=== PATIENT | male | born 2000 | race Caucasian/White ===

== ENCOUNTER 2024-09-25 18:29 | Emergency (ER) | payer SELFPAY ==
[~2024-09-25] VITALS: Ht 170.2 cm; Wt 61.8 kg
[2024-09-25 19:20] VITALS: BP 120/82; PULSE 102; RESP 16; TEMP 98.3; O2SAT 98
--- NOTE | 2024-09-25 20:10 | Physician Documentation ---
History of Present Illness ~ Chief Complaint: Arm Pain Stated Complaint: R ARM PAIN Time Seen by MD: 19:39 HPI 24-year-old male patient presents to the ED with a complaint of right arm pain. He states that he injured himself at his job in [place] a proximally month ago. He has electric heat and then fell off a stand injuring himself.. He has his arm is currently in his sling and he says he that he has a broken arm and wants to know if it needs to be in a splint. Patient is not very forthcoming about his incident or why he was not seen for it in [place] Day of Onset: Sep 25, 2024 Medication Reconciliation Allergies: Coded Allergies: No Known Allergies (Unverified , 09/25/24) Past Medical History Past Medical History: No Pertinent History Past Surgical History: noncontributory Alcohol Use: Occasionally Drug Use: none Review of Systems All Other Systems at this time: Reviewed and Negative ROS As stated above in the HPI, otherwise all systems are reviewed and negative. Physical Exam Vital Signs: Temperature: 98.3, Source: Temporal, Heart Rate: 102, Respiratory Rate: 16, BP: 120/82, Pulse Oximetry: 98, Weight: 61.800 Oxygen Flow Rate: 0 Progress Results/Orders Results/Orders Orders - YONIS MAX [employer] Humerus (2vws) (09/25/24 20:05) Elbow, Complete (3vw Min) (09/25/24 20:05) Shoulder, Complete (Min 2 Vws) (09/25/24 20:05) Completed Orders - YONIS [employer] Humerus (2vws) (09/25/24 20:05) Elbow, Complete (3vw Min) (09/25/24 20:05) Shoulder, Complete (Min 2 Vws) (09/25/24 20:05) Vital Signs 09/25/24 19:20 Temp 98.3 Pulse 102 Resp 16 B/P (MAP) 120/82 Pulse Ox 98 O2 Flow Rate 0 Medical Decision Making Findings I did not appreciate any acute fractures in patient's x-rays that would require splinting. Departure Disposition: HOME / SELF CARE / HOMELESS Impression: Primary Impression: Superficial bruising Condition: Stable Referrals: NO PRIMARY CARE PROVIDER (PCP) Signature Scribe Signature: h Attestation: Scribed for Yonis Max Np by Yonis Evangelista NP . 09/25/24 20:10 YONIS MAX NP Sep 25, 2024 20:10
--- NOTE | 2024-09-25 20:34 | RADIOLOGY REPORT ---
EXAMINATIONS: 3 views of the right shoulder 2 views of the right humerus 4 views of the right elbow CLINICAL HISTORY: fall non acute RIGHT COMPARISON: None Findings and impression: No grossly displaced fractures or dislocations of the right shoulder, humerus or elbow are evident on the provided views. Glenohumeral articulation appears intact. No definite elbow joint effusion given positioning. If the patient has continued symptoms clinically suspicious for radiographically occult fracture, fol low-up radiographs could be obtained in 7-10 days time.
== END 2024-09-25 20:11 | disposition left against medical advice (07) ==
LOC: ER 18:30
DX: S50.01XA Contusion of right elbow, initial encounter (principal); X58.XXXA Exposure to other specified factors, initial encounter; Y93.89 Activity, other specified; Y92.89 Other specified places as the place of occurrence of the external cause; Y99.8 Other external cause status
CPT/HCPCS: 73030; 73060; 73080; 99284